=== PATIENT | male | born 1955 | race Caucasian/White ===

== ENCOUNTER 2024-03-06 11:46 | Outpatient (CLI) | payer MEDICARE, OTHER | END 2024-03-06 11:47 | disposition home or self-care (01) | LOC: PET 11:46 | PROVIDERS: ATTEND Internal Medicine Hematology & Oncology | DX: C61 Malignant neoplasm of prostate (principal); C79.51 Secondary malignant neoplasm of bone; M89.9 Disorder of bone, unspecified | CPT/HCPCS: 78815; A9552; A9595 ==

== ENCOUNTER 2025-01-30 13:30 | Outpatient (CLI) | payer MEDICARE, OTHER ==
[2025-02-01 10:02] LABS: Estimated GFR - POC 73.0
== END 2025-01-30 13:31 | disposition home or self-care (01) ==
LOC: MRI 13:30
PROVIDERS: ATTEND Internal Medicine Hematology & Oncology
DX: C61 Malignant neoplasm of prostate (principal); C79.51 Secondary malignant neoplasm of bone; K80.20 Calculus of gallbladder without cholecystitis without obstruction; K76.0 Fatty (change of) liver, not elsewhere classified; K86.2 Cyst of pancreas
CPT/HCPCS: 36415; 74183; 82565